=== PATIENT | female | born 1980 | race Caucasian/White ===

== ENCOUNTER 2021-09-30 14:55 | Emergency (ER) | payer BC ==
[~2021-09-30] VITALS: Ht 172.7 cm; Wt 104.5 kg
[2021-09-30 15:27] LABS: BASOPHILS % (AUTO) 0.1 % (0-1); EOSINOPHILS % (AUTO) 0 % (0-6); HEMATOCRIT 40.3 % (35.0-45.0); HEMOGLOBIN 13.6 g/dl (12.0-16.0); LYMPHOCYTES # (AUTO) 1.4 X10'3 (1.1-4.8); LYMPHOCYTES % (AUTO) 24.9 % (21-51); MEAN CORPUSCULAR HEMOGLOBIN 28.4 PG (27.0-31.0); MEAN CORPUSCULAR HGB CONC 33.7 g/dL (33.0-36.5); MEAN CORPUSCULAR VOLUME 84.4 FL (78-98); MEAN PLATELET VOLUME 7.9 FL (7.4-10.4); MONOCYTES # (AUTO) 0.5 X10'3 (0-0.9); MONOCYTES % (AUTO) 8.3 % (2-12); NEUTROPHILS # (AUTO) 3.8 X10'3 (1.8-7.7); NEUTROPHILS % (AUTO) 66.7 % (42-75); PLATELET COUNT 236 X10'3 (140-440); RED BLOOD COUNT 4.78 X10'6 (4.20-5.60); WHITE BLOOD COUNT 5.8 X10'3 (4.5-11.0)
[2021-09-30 15:41] LABS: ALANINE AMINOTRANSFERASE 120 U/L (12-78); ALBUMIN 3.1 G/DL (3.4-5.0); ALBUMIN/GLOBULIN RATIO 0.6 (1.1-1.5); ALKALINE PHOSPHATASE 47 IU/L (46-116); ANION GAP 11 (8-16); ASPARTATE AMINO TRANSFERASE 92 U/L (10-37); BILIRUBIN,TOTAL 0.3 MG/DL (0.1-1.0); BLOOD UREA NITROGEN 13 MG/DL (7-18); BUN/CREATININE RATIO 20.6 (6.6-38.0); CALCIUM 8.6 MG/DL (8.5-10.1); CHLORIDE 105 MMOL/L (99-107); CREATININE 0.63 MG/DL (0.40-0.90); GLUCOSE 120 MG/DL (70-104); LACTATE DEHYDROGENASE 415 U/L (81-234); POTASSIUM 3.6 MMOL/L (3.5-5.1); SODIUM 143 MMOL/L (135-145); TOTAL CARBON DIOXIDE 27.1 MMOL/L (24-32); eGFR > 90 ML/MIN
[2021-09-30] MEDS ORDERED: dexamethasone 4mg tablet PO ONE (15:45)
[2021-09-30] MEDS ORDERED: CASIRIVIMAB/IMDEVIMAB inject. 10 ML in normal saline 100ml IV soln 100 ML IV ONE (15:45)
[2021-09-30] MEDS ORDERED: iohexol 350MG/ML 100ml bottle IV ONE (16:57)
--- NOTE | 2021-09-30 17:31 | NUR ---
signed up for the pt .pharmacy called for the iv medication ,as per claudia in [place] its not ready ,when its ready ,they will bring it to [place].
[2021-09-30 17:36] LABS: HCG SERUM QL NEGATIVE
[2021-09-30] MEDS: DEXAMETHASONE 6 MG TABLET PO ONE (18:03)
[2021-09-30] MEDS: LORazepam 1 MG tablet PO ONE (18:19)
[2021-09-30] MEDS: BAMLANIVIMAB 700MG, ETESEVIMAB 1,400MG in NS 100mL (Total vol 160ml) IV ONE (18:21)
[2021-09-30] MEDS: LORazepam 2 mg/ml vial IV ONE (19:21)
[2021-09-30 21:23] VITALS: BP 117/70
== END 2021-09-30 21:24 | disposition home or self-care (01) ==
LOC: ER 14:55
DX: U07.1 COVID-19 (principal); J12.82 Pneumonia due to coronavirus disease 2019; R06.02 Shortness of breath; R50.9 Fever, unspecified; Z88.0 Allergy status to penicillin
CPT/HCPCS: 36415; 71045; 71275; 80053; 83615; 84703; 85025; 86140; 96374; 99285; J2060; M0245; Q0245; Q9967; J8540; Q0239